=== PATIENT | male | born 1940 | race American Indian/Alaskan Native ===

== ENCOUNTER 2017-06-08 12:57 | Emergency (ER) | payer MEDICARE ==
[2017-06-08 13:02] VITALS: O2SAT 96
--- NOTE | 2017-06-08 13:56 | C.PDOC ---
History Of Present Illness Pt is a 76yo male, with PMHx of diabetes, HTN, presents to the ED for evaluation of swelling in his right hand. Pt reports he had pain earlier this morning which has improved. He denies any instance of insect bite and also denies any fever. Pt states he did not take any medications for his pain. Currently, pt offers no additional medical complaints. PMD: Dr. Jon Jimenez . Time Seen by Provider: 06/08/17 13:24 Chief Complaint (Nursing): Upper Extremity Problem/Injury History Per: Patient History/Exam Limitations: no limitations Onset/Duration Of Symptoms: Hrs Current Symptoms Are (Timing): Better Quality: "Pain", Other (swelling) Past Medical History Reviewed: Historical Data, Nursing Documentation, Vital Signs Vital Signs: Last Vital Signs Temp 97.8 F 06/08/17 14:54 Pulse 68 06/08/17 14:54 Resp 20 06/08/17 14:54 BP 154/72 H 06/08/17 14:54 Pulse Ox 96 06/08/17 14:54 - Medical History PMH: Diabetes, HTN Surgical History: No Surg Hx Family History: States: Diabetes - Social History Hx Tobacco Use: No Hx Alcohol Use: No Hx Substance Use: No Review Of Systems Constitutional: Negative for: Fever Musculoskeletal: Positive for: Hand Pain (right hand pain, swelling) Physical Exam - Physical Exam Appears: Well, Toxic Skin: Normal Color, Warm, Dry Head: Atraumatic Nose: Normal Lips: Normal Appearing Cardiovascular: Rhythm Regular Respiratory: Normal Breath Sounds, No Rales, No Rhonchi, No Wheezing Extremity: Normal ROM, Tenderness (tenderness of right wrist, proximal to distal radius. no warmth noted.), Swelling (edema noted to dorsal surface of right hand but no erythema (and no warmth)) ED Course And Treatment O2 Sat by Pulse Oximetry: 96 Medical Decision Making Medical Decision Making: Time: 1308 Impression: Right hand swelling w/ no trauma hx Differential dx includes but is not limited to: Possible inflammatory arthritis , bursitis, gout Plan: -- Motrin 600 mg PO -- Cold pack -- Pt instructed to follow up with hand specialist. 2:43 PM - Pt feels much better. Pt is pain-free. Will d/c home. Disposition - Disposition Referrals: Viky Morris MD [Provisional Staff] - Disposition: HOME/ ROUTINE Disposition Time: 14:43 Condition: IMPROVED Additional Instructions: Mr. Spaulding, thank you for letting us take care of you today. Return to the ER if your symptoms worsen, or if any problems. Take the medication listed below as prescribed. It is important that you follow up with the hand doctor (Dr. Morris)--call the phone number listed below to make an appointment with Dr. Morris. Prescriptions: Ibuprofen [Motrin] 1 tab PO Q8 PRN #30 tab PRN Reason: Pain, Moderate (4-7) Instructions: Gout (ED), Arthritis (ED) Forms: General Discharge Instructions Print Language: KYRGYZ - POA Present On Arrival: None - Clinical Impression Clinical Impression: Inflammatory arthritis - Scribe Statement The provider has reviewed the documentation as recorded by the Karen Boroks Provider Attestation: All medical record entries made by the Karen were at my direction and personally dictated by me. I have reviewed the chart and agree that the record accurately reflects my personal performance of the history, physical exam, medical decision making, and the department course for this patient. I have also personally directed, reviewed, and agree with the discharge instructions and disposition.
[2017-06-08 14:56] VITALS: BP 154/72; PULSE 68; RESP 20; TEMP 97.8
== END 2017-06-08 14:53 | disposition home or self-care (01) ==
LOC: C.ER 12:57
DX: M13.841 Other specified arthritis, right hand (principal)